=== PATIENT | male | born 1955 | race Caucasian/White ===

== ENCOUNTER 2021-03-22 11:55 | Inpatient (IN) | payer MEDICARE, MEDICAID ==
[~2021-03-22] VITALS: Ht 175.3 cm; Wt 80.7 kg
--- NOTE | 2021-03-22 11:57 | NUR ---
PT [id number] FRM HOME C/O L SIDED FACIAL DROOP/WEAKNESS SINCE Saturday03/17/21. NO SLURRED SPEECH NOTED. PT A/OX3. TOLERATING R/A WELL WITH NO SOB. CONNECTED PT TO POX AND MONITOR. SAFETY MEASURES IN PLACE
--- NOTE | 2021-03-22 12:00 | NUR ---
BLOOD COLLECTED AND SENT TO LAB
--- NOTE | 2021-03-22 12:04 | NUR ---
DR MITCHELL AT THE BEDSIDE
--- NOTE | 2021-03-22 12:05 | NUR ---
CODE STROKE IS CALLED
--- NOTE | 2021-03-22 12:05 | NUR ---
CODE STROKE CALLED
--- NOTE | 2021-03-22 12:05 | NUR ---
CODE STOKE ACTIVATED
--- NOTE | 2021-03-22 12:07 | NUR ---
PT TAKEN TO CT VIA LESLIE WITH ACLS PROTOCOL
--- NOTE | 2021-03-22 12:07 | NUR ---
BLOOD SUGAR 144. DR MITCHELL AWARE.
[2021-03-22] MEDS ORDERED: IOHEXOL-350 100 ML VIAL IV ONE (12:09)
[2021-03-22] MEDS ORDERED: CT SWABBABLE VALVE TRANS SET 1 EA INFUS.SET MC ONE (12:10)
[2021-03-22] MEDS ORDERED: IV NS 0.9% 250 ML IV ONE (12:10)
--- NOTE | 2021-03-22 12:12 | NUR ---
CALLED TELE MED TELE NEUROLOGIST WILL BE DR. CLOTILDE BEGUM
[2021-03-22 12:19] LABS: BASOPHILS # (AUTO) 0.2 K/uL (0.0-0.2); BASOPHILS % (AUTO) 1.2 % (0.0-2.0); EOSINOPHILS % (AUTO) 0.9 % (0.0-6.0); HEMATOCRIT 42 % (39-51); HEMOGLOBIN 14.4 g/dL (13.5-17.5); LYMPHOCYTES # (AUTO) 2.1 K/uL (0.8-4.8); LYMPHOCYTES % (AUTO) 15.4 % (20.0-44.0); MEAN CORPUSCULAR HGB CONC 34 g/dl (31.0-36.0); MEAN CORPUSCULAR VOLUME 87 fL (80-96); MONOCYTES # (AUTO) 0.9 K/uL (0.1-1.30); MONOCYTES % (AUTO) 6.5 % (2.0-12.0); NEUTROPHILS # (AUTO) 10.4 K/uL (1.8-8.9); PLATELET COUNT (AUTO) 345 K/uL (150-450); RED BLOOD CELL COUNT(AUTO) 4.84 MIL/uL (4.5-6.0); WHITE BLOOD COUNT (AUTO) 13.6 K/uL (4.3-11.0)
--- NOTE | 2021-03-22 12:19 | NUR ---
THE PATIENT IS BACK FROM CT VIA GURNEY WITH ACLS PROTOCOL
--- NOTE | 2021-03-22 12:23 | NUR ---
MOVE SHEET SUBMITTED AND CALLED FOR TELE BED.
[2021-03-22 12:27] LABS: CALCIUM, SERUM 9.6 mg/dL (8.5-10.1); CARBON DIOXIDE 23 mmol/L (21-32); CHLORIDE 101 mmol/L (98-107); CREATININE 2.8 mg/dL (0.6-1.3); GLUCOSE 148 mg/dL (74-106); POTASSIUM 3.3 mmol/L (3.5-5.1); SODIUM SERUM 140 mmol/L (136-145); UREA NITROGEN, BLOOD 61 mg/dL (7-18)
--- NOTE | 2021-03-22 12:30 | NUR ---
PT ON TELEMED CALL WITH DR. CLOTILDE DUTTA
[2021-03-22] MEDS ORDERED: ASPIRIN 325 MG TABLET ONE (12:39)
--- NOTE | 2021-03-22 12:47 | NUR ---
PT PASSED SWALLOW EVAL WITH NO CHOKING OR DIFFICULTY SWALLOWING [facility] SCORE 7
--- NOTE | 2021-03-22 12:48 | NUR ---
COVID ANTIGEN SWAB COLLECTED AND SENT TO LAB
[2021-03-22] MEDS ORDERED: ATOR10TA PO (12:50)
[2021-03-22] MEDS ORDERED: GLIP10TA11 PO (12:50)
[2021-03-22] MEDS ORDERED: AMLO-212 PO (12:50)
[2021-03-22] MEDS ORDERED: LOSA1TAB39 PO (12:50)
--- NOTE | 2021-03-22 12:51 | NUR ---
CUSTOMER CARE ASSOCIATE AT PT'S BEDSIDE
[2021-03-22] MEDS ORDERED: ASPIRIN 325 MG TABLET PO ONE (13:00)
[2021-03-22] MEDS ORDERED: OXCA600T8 PO (13:11)
[2021-03-22] MEDS ORDERED: METF-442 PO (13:11)
[2021-03-22] MEDS ORDERED: LABE300T2 PO (13:11)
[2021-03-22] MEDS ORDERED: CHOL100062 PO (13:11)
--- NOTE | 2021-03-22 13:14 | NUR ---
BED 327-1, GIVE REPORT TO BRIANDA.
--- NOTE | 2021-03-22 13:15 | NUR ---
ASSIGNED TO 327-1
--- NOTE | 2021-03-22 13:30 | NUR ---
REPORT GIVEN TO BRIANDA Navarrete RN FOR KHOI
--- NOTE | 2021-03-22 14:21 | NUR ---
CALLED LAB TO F/U WITH COVID ANTIGEN RESULT; STILL PENDING
--- NOTE | 2021-03-22 16:04 | NUR ---
PT TRANFERRED TO 3W 327-T VIA ACLS PROTCOL. VSS. ALL BELONGINGS WITH PT
--- NOTE | 2021-03-22 16:05 | NUR ---
FINGERPRINT TECHNICIAN NOTE PT IN BED COMFORTABLE. ON RA WITH NO SOB OR RESPIRATORY DISTRESS NOTED. IV PRESENT ON R FA 18G AND FLUSHES WELL. NO COMPLAINT OF PAIN OR NAUSEA. SKIN ISSUES IDENTIFIED AND PICTURES TAKEN. WOUND CONSULT ORDERED. SAFETY MEASURES IN PLACE. SIDE RAILS RAISED. BED LOWERED. CALL LIGHT WITHIN REACH. WILL CONTINUE TO MONITOR.
[2021-03-22] MEDS ORDERED: IV NS 0.45% 500 ML IV ONE (17:30)
[2021-03-22] MEDS ORDERED: POTASSIUM CHLORIDE 20 MEQ TAB.PRT.SR PO ONE (18:00)
[2021-03-22] MEDS ORDERED: IV NS 0.9% 500 ML IV ONE (18:30)
--- NOTE | 2021-03-22 18:35 | NUR ---
RN CLOSING NOTE PT IN BED COMFORTABLE. ON RA WITH NO SOB OR RESPIRATORY DISTRESS NOTED. IV PRESENT ON R FA 18G AND FLUSHES WELL. NO COMPLAINT OF PAIN OR NAUSEA. SAFETY MEASURES IN PLACE. SIDE RAILS RAISED. BED LOWERED. CALL LIGHT WITHIN REACH. WILL GIVE REPORT TO NIGHT NURSE FOR KHOI.
--- NOTE | 2021-03-22 19:30 | NUR ---
TEST LEAD APPLICATION TESTING NOTES RECEIVED ON BED A/O X4,BREATHING REGULAR,NOT IN ANY FORM OF DISTRESS.PRESENT IVF INFUSING WELL ON RIGHT AC.WITH LEFT SIDED WEAKNESS,UPPER AND LOWER EXTREMITIES.ASSIST WITH ADL'S,CALL LIGHT IN REACH,NEEDS ANTICIPATED.
[2021-03-22 20:00] VITALS: BP 163/78
[2021-03-22] MEDS: HEPARIN SODIUM, PORCINE 5000 UNITS/1 ML VIAL SQ SCH (21:14)
[2021-03-22] MEDS: SIMVASTATIN 20 MG TABLET PO SCH ×2 (21:16→22:06)
[2021-03-22] MEDS ORDERED: DEXTROSE 50%-WATER 50 ML DISP.SYRIN IV PRN (22:30)
[2021-03-22] MEDS ORDERED: *INSULIN REGULAR(HUMULIN R)HUM 100 UNIT/ML VIAL SQ PRN (22:30)
[2021-03-22] MEDS: ATORVASTATIN 10 MG TABLET PO SCH (23:14)
--- NOTE | 2021-03-22 23:14 | NUR ---
LEVELMAN NOTES C/O INSOMNIA,AMBIEN 5MG PO GIVEN ORDERED.
--- NOTE | 2021-03-22 23:14 | NUR ---
FILLING MIXER NOTES C/O INSOMNIA,AMBIEN 5MG PO GIVEN ORDERED.
[2021-03-22] MEDS ORDERED: ZOLPIDEM TARTRATE 5 MG TABLET PO PRN (23:30)
--- NOTE | 2021-03-22 23:30 | NUR ---
COVERING AND LINING SUPERVISOR NOTES IV SITE WITH REDNESS NOTED,HARD TO FLUSH.NEW SALINE LOCK PLACE ON LEFT ARM #22.IVF RE STARTED.
[2021-03-23] VITALS: BP 165/94
[2021-03-23 04:00] VITALS: BP 150/74
[2021-03-23 06:57] LABS: BASOPHILS # (AUTO) 0.1 K/uL (0.0-0.2); BASOPHILS % (AUTO) 1.3 % (0.0-2.0); EOSINOPHILS % (AUTO) 2.3 % (0.0-6.0); HEMATOCRIT 39 % (39-51); HEMOGLOBIN 13.3 g/dL (13.5-17.5); LYMPHOCYTES # (AUTO) 2.3 K/uL (0.8-4.8); LYMPHOCYTES % (AUTO) 24.5 % (20.0-44.0); MEAN CORPUSCULAR HGB CONC 34 g/dl (31.0-36.0); MEAN CORPUSCULAR VOLUME 87 fL (80-96); MONOCYTES # (AUTO) 0.8 K/uL (0.1-1.30); MONOCYTES % (AUTO) 8.3 % (2.0-12.0); NEUTROPHILS % (AUTO) 63.6 % (43.0-81.0); PLATELET COUNT (AUTO) 292 K/uL (150-450); RED BLOOD CELL COUNT(AUTO) 4.49 MIL/uL (4.5-6.0); WHITE BLOOD COUNT (AUTO) 9.3 K/uL (4.3-11.0)
--- NOTE | 2021-03-23 07:21 | NUR ---
RESOURCE EFFICIENCY MANAGER NOTES SR ON TELE MONITOR,ABLE TO SLEEP WITH AMBIEN,REMAINS WEAK ON LEFT UPPER AND LOWER EXTREMITIES.IN NO ACUTE DISTRESS.
--- NOTE | 2021-03-23 07:30 | NUR ---
VIDEOTAPE RECORDING ENGINEER OPENING NOTE PATIENT IN BED AWAKE AND COMFORTABLE. ON RA WITH NO SOB OR RESPIRATORY DISTRESS NOTED.ON TELE MONITORING SR=63 . IV PRESENT ON R FA 22 G AND FLUSHES WELL. NO COMPLAINT OF PAIN . SAFETY MEASURES IN PLACE. SIDE RAILS RAISED. BED LOWERED. CALL LIGHT WITHIN REACH. WILL CONTINUE TO MONITOR.
[2021-03-23] MEDS: PANTOPRAZOLE 40 MG TABLET.DR PO SCH (07:52)
[2021-03-23] MEDS: BLOOD SUGAR DIAGNOSTIC 1 EACH STRIP VI SCH ×4 (08:03→21:52)
[2021-03-23 08:14] VITALS: BP 170/79
[2021-03-23] MEDS: ASPIRIN EC 325 MG TABLET.DR PO SCH (08:23)
[2021-03-23] MEDS: OXCARBAZEPINE 150 MG TABLET PO SCH ×2 (08:23→20:49)
[2021-03-23] MEDS: CHOLECALCIFEROL 1,000 UNIT TABLET (VIT D3) PO SCH (08:24)
[2021-03-23] MEDS: LABETALOL HCL (100MG) 100 MG TABLET PO SCH ×2 (08:26→20:50)
[2021-03-23] MEDS: HEPARIN SODIUM, PORCINE 5000 UNITS/1 ML VIAL SQ SCH ×2 (08:28→20:52)
[2021-03-23] MEDS: AMLODIPINE BESYLATE 5 MG TABLET PO SCH (08:38)
[2021-03-23 09:41] LABS: CREATININE 1.8 mg/dL (0.6-1.3)
[2021-03-23 10:18] LABS: THYROID STIMULATING HORMONE 0.618 uIU/mL (0.358-3.74)
[2021-03-23 11:49] VITALS: BP 149/70
[2021-03-23] MEDS ORDERED: ASPI-1100 PO (15:31)
[2021-03-23] MEDS ORDERED: PANT40TA49 PO (15:31)
[2021-03-23] MEDS ORDERED: *INS REG SQ (15:31)
[2021-03-23] MEDS ORDERED: AMLO-212 PO (15:31)
[2021-03-23 16:20] VITALS: BP 158/79
[2021-03-23] MEDS: INSULIN REGULAR, HUMAN 100 UNIT/ML 3 ML VIAL SQ PRN (18:38)
[2021-03-23] MEDS: ATORVASTATIN 10 MG TABLET PO SCH (18:43)
--- NOTE | 2021-03-23 19:00 | NUR ---
HEAD OF SALES AND MARKETING CLOSING NOTE PATIENT IN BED AWAKE AND COMFORTABLE. ON RA WITH NO SOB OR RESPIRATORY DISTRESS NOTED.ON TELE MONITORING . IV PRESENT ON R FA 22 G AND FLUSHES WELL. NO COMPLAINT OF PAIN . SAFETY MEASURES IN PLACE. SIDE RAILS RAISED. BED LOWERED. CALL LIGHT WITHIN REACH. ALL DUE MEDS GIVEN. WILL ENDORSE INCOMING SHIFT FOR KHOI.
--- NOTE | 2021-03-23 19:30 | NUR ---
RN OPENING NOTE PATIENT IN BED, SLEEPING, EASILY AROUSED. PATIENT IS A/O X 3, ABLE TO MAKE NEEDS KNOWN. PATIENT NOTICEABLE TO HAVE L SIDED WEAKNESS. TELE MONITOR READS 68 BPM SR. BREATHING EVEN AND UNLABORED, NO REPORTS OF PAIN OR DISCOMFORT. PATIENT VERBALIZES THAT HE FEELS HOPELESS AND DEPRESSED D/T WHAT HAPPENED TO HIM AND HIS SITUATION. THERAPEUTIC COMMUNICATION IMPLEMENTED. PATIENT HAS A RFA 22 G PATENT AND INTACT, SL. SAFETY MEASURES IN PLACE: BED LOCKED AND IN LOWEST POSITION, CALL LIGHT WITHIN REACH, SIDE RAILS UP. ENCOURAGED PATIENT NOT TO GET OUT OF BED. WILL MONITOR PATIENT CLOSELY.
[2021-03-23 20:00] VITALS: BP 119/72
[2021-03-23] MEDS ORDERED: POTASSIUM CHLORIDE 20 MEQ TAB.PRT.SR PO ONE ×2 (21:00→21:30)
--- NOTE | 2021-03-23 21:25 | NUR ---
RN NOTE PYSIS DID NOT ISSUE POTASSIUM CHLORIDE ALTHOUGH I WAS ABLE TO SELECT IT, BUT DID NOT ISSUE IT. RE-ORDERED BY PHARMACY FOR IT TO SHOW UP ON PYXIS.
--- NOTE | 2021-03-23 22:00 | NUR ---
RN NOTE PATIENT'S BS 178 MG/DL, 3 UNITS GIVEN FOR COVERAGE. WILL MONITOR PATIENT GOT ANY S/S OF HYPOGLYCEMIA.
[2021-03-24] VITALS: BP 147/87
[2021-03-24] MEDS ORDERED: HYDROCODONE/APAP 10/325MG TABLET PO PRN (00:30)
--- NOTE | 2021-03-24 00:52 | NUR ---
NORCO 10/325 ADMINISTERED FOR HEADACHE 7/10 ON PAIN SCALE. WILL REASSESS PAIN AT A LATER TIME.
[2021-03-24 04:00] VITALS: BP 135/85
[2021-03-24] MEDS: BLOOD SUGAR DIAGNOSTIC 1 EACH STRIP VI SCH ×3 (06:35→18:14)
[2021-03-24] MEDS: INSULIN REGULAR, HUMAN 100 UNIT/ML 3 ML VIAL SQ PRN ×2 (06:36→11:49)
--- NOTE | 2021-03-24 06:57 | NUR ---
RN CLOSING NOTE PATIENT STILL FEELING DEPRESSED, ENCOURAGED PATIENT TO VOICE OUT CONCERNS TO MD AND DISCUSS OPTIONS. EDUCATED PATIENT ON DISCHARGE PLAN. BS 140 MG/DL 2 UNITS GIVEN. NO CHANGES ON NEURO STATUS. NOT IN ANY APPARENT DISTRESS. SAFETY MEASURES IMPLEMENTED. ALL ORDERS CARRIED OUT. WILL ENDORSE TO DAY SHIFT NURSE FOR KHOI.
[2021-03-24 07:40] LABS: BASOPHILS # (AUTO) 0.1 K/uL (0.0-0.2); BASOPHILS % (AUTO) 1.1 % (0.0-2.0); EOSINOPHILS % (AUTO) 3.4 % (0.0-6.0); HEMATOCRIT 39 % (39-51); HEMOGLOBIN 13.3 g/dL (13.5-17.5); LYMPHOCYTES # (AUTO) 2.4 K/uL (0.8-4.8); LYMPHOCYTES % (AUTO) 31.4 % (20.0-44.0); MEAN CORPUSCULAR HGB CONC 34 g/dl (31.0-36.0); MEAN CORPUSCULAR VOLUME 88 fL (80-96); MONOCYTES # (AUTO) 0.7 K/uL (0.1-1.30); MONOCYTES % (AUTO) 8.9 % (2.0-12.0); NEUTROPHILS # (AUTO) 4.2 K/uL (1.8-8.9); NEUTROPHILS % (AUTO) 55.2 % (43.0-81.0); PLATELET COUNT (AUTO) 253 K/uL (150-450); RED BLOOD CELL COUNT(AUTO) 4.43 MIL/uL (4.5-6.0); WHITE BLOOD COUNT (AUTO) 7.6 K/uL (4.3-11.0)
[2021-03-24 07:59] LABS: CALCIUM, SERUM 9.3 mg/dL (8.5-10.1); CREATININE 1.6 mg/dL (0.6-1.3); MAGNESIUM 2.3 mg/dL (1.8-2.4); PHOSPHORUS 3.4 mg/dL (2.5-4.9); POTASSIUM 3.3 mmol/L (3.5-5.1)
[2021-03-24 08:10] VITALS: BP 159/82
[2021-03-24] MEDS: AMLODIPINE BESYLATE 5 MG TABLET PO SCH (08:19)
[2021-03-24] MEDS: PANTOPRAZOLE 40 MG TABLET.DR PO SCH (08:19)
[2021-03-24] MEDS: CHOLECALCIFEROL 1,000 UNIT TABLET (VIT D3) PO SCH (08:20)
[2021-03-24] MEDS: LABETALOL HCL (100MG) 100 MG TABLET PO SCH (08:20)
[2021-03-24] MEDS: ASPIRIN EC 325 MG TABLET.DR PO SCH (08:20)
[2021-03-24] MEDS: OXCARBAZEPINE 150 MG TABLET PO SCH (08:21)
[2021-03-24] MEDS: HEPARIN SODIUM, PORCINE 5000 UNITS/1 ML VIAL SQ SCH (08:31)
--- NOTE | 2021-03-24 09:06 | NUR ---
WOUND CARE CONSULT: PT PRESENTS WITH SOME DISCOLORATION TO LEFT KNEE AND DRY ABRASION TO RT KNEE, PRESENT ON ADMISSION. PT IS AMBULATORY WITH P.T. WILL SEE PRN.
[2021-03-24] MEDS ORDERED: POTASSIUM CHLORIDE 20 MEQ TAB.PRT.SR PO SCH (10:00)
--- NOTE | 2021-03-24 10:35 | NUR ---
tele circuit court judge: md visit seen and examined by dr. miller with orders. orders acknowledged.
[2021-03-24 12:03] VITALS: BP 113/67
--- NOTE | 2021-03-24 12:45 | NUR ---
tele med surg nurse: nephro f/u seen and examined by dr. jeong at this time.
--- NOTE | 2021-03-24 14:29 | NUR ---
SS Consult: SS consult for stroke. Pt. Is a 65-year-old male. Pt. demonstrates adequate insight to the reason for hospitalization. Per pt., he was brought to hospital due to feeling weak. Pt. was oriented x3, alert, and cooperative. During interview, pt. was capable of following directions, and made appropriate eye-contact. Pt.s speech was at a normal rate. Pt.s mood was irritable. SW explored pt.s Hx of mental health and substance abuse. Pt. reported no Hx of mental health, substance abuse, suicidal or homicidal. Pt. denies auditory hallucinations, visual hallucinations, paranoia, or delusions. SW explored pt.s living situation. Per pt., he lives alone [[id number], [place] [address]]. Per pt., when he got home from the store, putting away his groceries, he started to feel numbness in his toes. Pt. reported feeling like he was tipsy. Pt. mentioned that his whole left side is numb and is not able to function. Pt. reported no Hx of stroke. Per pt., he reports having no adequate support and does not feel safe to go back home. SW will make an APS report due to no caregiver and self-neglect. SW did a PhQ9 on pt. Score: 4. No need for a psychiatry consult. Plan: [facility] provided available resources and pt. accepted. Once discharge, per pt., he is working with Case Management to find him a placement. APS Intake: [id number] Resources Provided: Stroke Empowerment
--- NOTE | 2021-03-24 15:00 | NUR ---
tele car retarder operator: notes calvin (cayla) at bedside talking to pt and informed pt that he is being discharge to [facility] at [phone]. pt verbalized understanding.
[2021-03-24 16:00] VITALS: BP 124/76
--- NOTE | 2021-03-24 16:12 | NUR ---
tele brass pourer: notes attempted to call [facility], but nurse at break per laborer electroplating.
[2021-03-24 16:16] VITALS: BP 124/76
--- NOTE | 2021-03-24 17:00 | NUR ---
tele cattle alley worker: notes report given to david (rn) from [facility] for continuity of care.
--- NOTE | 2021-03-24 17:45 | NUR ---
tele shotgun shell reprinting unit operator: notes discharge instructions given to pt and verbalized understanding. awaiting for ambulance to pick pt up. Addendum: 03/24/21 at 1809 by ARTURO ISLAS HIGH SCHOOL COUNSELOR pt refused skin photos, stated, "it was taken 2 days ago." no changes in skin condition.
--- NOTE | 2021-03-24 18:00 | NUR ---
tele lab aid: notes ambulance here and report given to one of the crew. h/l removed with tip intact.
--- NOTE | 2021-03-24 18:24 | NUR ---
tele documentation nurse: notes discharge to [facility] in stable condition with valuables accompanied by 4 emt.
== END 2021-03-24 18:25 | DRG 64 ==
LOC: ER 11:57 → TELE 13:22
PROVIDERS: ADMIT Student in an Organized Health Care Education/Training Program; ATTEND Student in an Organized Health Care Education/Training Program
DX: I63.211 Cerebral infarction due to unspecified occlusion or stenosis of right vertebral artery (principal); N17.0 Acute kidney failure with tubular necrosis; G81.94 Hemiplegia, unspecified affecting left nondominant side; I10 Essential (primary) hypertension; E78.5 Hyperlipidemia, unspecified; D72.829 Elevated white blood cell count, unspecified; R29.708 NIHSS score 8; E11.9 Type 2 diabetes mellitus without complications; E78.1 Pure hyperglyceridemia; E87.6 Hypokalemia; R29.810 Facial weakness; Z79.84 Long term (current) use of oral hypoglycemic drugs; Z20.822 Contact with and (suspected) exposure to COVID-19
CPT/HCPCS: 36415; 70450-TC; 70496-TC; 70498-TC; 71045-TC; 80048-TC; 80061-TC; 82962-TC; 83735-TC; 84100-TC; 84443-TC; 84484-TC; 85025-TC; 85730-TC; 87081-TC; 92526; 92611-TC; 93307-TC; 97110-TC; 97116-TC; 97530-TC; G0378; J1644; J1815; J3490; J7030; J7040; J7050; Q9967